=== PATIENT | female | born 1990 | race Caucasian/White ===

== ENCOUNTER 2023-10-16 13:46 | Emergency (ER) | payer MEDICAID ==
[~2023-10-16] VITALS: Ht 170.2 cm; Wt 79.4 kg
[2023-10-16 14:08] VITALS: BP_SYST 126; PULSE 83; RESP 18; TEMP 98.4; O2SAT 97
[2023-10-16 18:47] VITALS: BP_SYST 123; PULSE 80; RESP 17; TEMP 98.2; O2SAT 98
== END 2023-10-16 18:47 | disposition home or self-care (01) ==
LOC: SED 13:46
DX: H10.212 Acute toxic conjunctivitis, left eye (principal)
CPT/HCPCS: 99282